=== PATIENT | female | born 1980 | race Caucasian/White ===

== ENCOUNTER 2016-10-04 22:52 | Emergency (ER) | payer OTHER ==
[~2016-10-04] VITALS: Ht 170.2 cm; Wt 112.7 kg
[~2016-10-04 22:52] MED LIST: CLEOCIN300 MG PO; NOHOMEMEDS; PAIN & FEVER325 MG PO; PERCOCET 5/31 TABLET PO
[2016-10-05] MEDS ORDERED: BACTRIM,SEPT1 TABLET PO (00:37)
[2016-10-05] MEDS ORDERED: KEFLEX500 MG PO (00:37)
[2016-10-05 01:35] VITALS: BP 140/88
== END 2016-10-05 01:37 | disposition home or self-care (01) ==
LOC: EME 22:52
PROC: 0U9MXZZ Drainage of Vulva, External Approach (ICD-10-PCS; principal; 2016-10-05)
DX: N76.4 Abscess of vulva (principal); Z86.14 Personal history of Methicillin resistant Staphylococcus aureus infection; Z91.040 Latex allergy status; F17.200 Nicotine dependence, unspecified, uncomplicated
CPT/HCPCS: 99281; 99284

== ENCOUNTER 2017-04-24 12:05 | Emergency (ER) | payer SELFPAY ==
[~2017-04-24] VITALS: Ht 170.2 cm; Wt 111.9 kg
[~2017-04-24 12:05] MED LIST changes: +BACTRIM,SEPT1 TABLET PO; +KEFLEX500 MG PO
[2017-04-24 12:13] VITALS: BP 187/75
[2017-04-24] MEDS ORDERED: AMOXICILLIN500 MG PO (15:12)
[2017-04-24] MEDS ORDERED: ACETAMINOPHEN-1 EAC1 PO (15:12)
[2017-04-26] MEDS ORDERED: MOTRIN IB200 MG PO (17:43)
== END 2017-04-24 15:40 | disposition home or self-care (01) ==
LOC: EME 12:05
DX: K04.7 Periapical abscess without sinus (principal); Z91.040 Latex allergy status
CPT/HCPCS: 99281; 99283

== ENCOUNTER 2017-04-25 14:09 | Emergency (ER) | payer SELFPAY ==
[~2017-04-25] VITALS: Ht 170.2 cm; Wt 112.3 kg
[~2017-04-25 14:09] MED LIST changes: +ACETAMINOPHEN-1 EAC1 PO; +AMOXICILLIN500 MG PO
[2017-04-25 15:13] LABS: BASOPHIL (%) 0.3 % (0-1); EOSINOPHIL (%) 1.3 % (0-5); EOSINOPHIL COUNT 0.1 K/uL (0-0.3); HEMOGLOBIN 12.5 G/DL (11.9-15.5); IMMATURE GRANULOCYTE (%) 0.3 % (0.0-0.7); LYMPHOCYTE (%) 17.1 % (15-42); LYMPHOCYTE COUNT 1.7 K/uL (1.0-2.8); MCH 32.1 PG (29.0-34.0); MCHC 33.8 G/DL (30.0-36.0); MCV 95.1 FL (83-99); MONOCYTE (%) 6.8 % (3-12); MONOCYTE COUNT 0.7 K/uL (0-0.8); NEUTROPHIL (%) 74.2 % (45-76); NEUTROPHIL COUNT 7.2 K/uL (1.8-6.4); PLATELET COUNT 180 K/uL (156-360); RBC DIS.WIDTH-CV 12.5 % (11.8-14.6); RBC DIS.WIDTH-SD 43.6 % (39-53); RED BLOOD COUNT 3.89 M/uL (3.80-5.20); WHITE BLOOD COUNT 9.7 K/uL (4.1-10.2)
[2017-04-25 15:21] LABS: ALBUMIN 3.9 g/dL (3.2-4.8); CHLORIDE 105 mEq/L (99-109); POTASSIUM 4.2 mEq/L (3.7-5.4); SODIUM 137 mEq/L (136-147)
[2017-04-25 15:23] LABS: GLUCOSE 104 mg/dL (70-99); TOTAL PROTEIN 7.3 g/dL (6.4-8.3)
[2017-04-25 15:25] LABS: TOTAL BILIRUBIN 0.3 mg/dL (0.0-1.0)
[2017-04-25 15:27] LABS: ALKALINE PHOSPHATASE 77 IU/L (3-129); CREATININE 0.7 mg/dL (0.6-1.3); GFR ESTIMATE (CALCULATED) > 59 mL/min/
[2017-04-25 15:28] LABS: UREA NITROGEN (BUN) 10 mg/dL (9-23)
[2017-04-25 15:29] LABS: AST (GOT) 13 IU/L (2-34)
[2017-04-25 15:30] LABS: ALT (GPT) 11 IU/L (3-49)
[2017-04-25 17:31] VITALS: BP 115/89
[2017-04-26] MEDS ORDERED: MOTRIN IB200 MG PO (17:43)
== END 2017-04-25 17:32 | disposition home or self-care (01) ==
LOC: EME 14:09
PROVIDERS: Physician Assistant
DX: L03.211 Cellulitis of face (principal); K04.7 Periapical abscess without sinus; R25.2 Cramp and spasm; F32.9 Major depressive disorder, single episode, unspecified
CPT/HCPCS: 70487; 80053; 83605; 85025; 87040; 99281; 99285; J0696; J2270; J3010; J7120